=== PATIENT | female | born 1970 | race Caucasian/White ===

== ENCOUNTER 2019-04-12 23:31 | Emergency (ER) | payer MEDICARE ==
[~2019-04-12] VITALS: Ht 162.6 cm; Wt 74.8 kg
[2019-04-12] MEDS ORDERED: INDERAL LA120 M1 (23:40)
[2019-04-12] MEDS ORDERED: LEXAPRO 10 MG T10 M2 (23:41)
[2019-04-12] MEDS ORDERED: PRINIVIL10 MG PO (23:41)
[2019-04-12] MEDS ORDERED: PROTONIX40 M1 PO (23:41)
[2019-04-12] MEDS ORDERED: CLONAZEPAM 0.50.5 M1 PO (23:41)
[2019-04-12] MEDS ORDERED: NORCO 7.5-3251 EACH PO (23:42)
[2019-04-12] MEDS ORDERED: ADIPEX-P37.5 MG PO (23:42)
[2019-04-12] MEDS ORDERED: DESYREL150 MG PO (23:42)
[2019-04-13] MEDS ORDERED: HYDROCODON-ACE1 EAC7 PO (00:20)
[2019-04-13 00:33] VITALS: BP 159/96
== END 2019-04-13 00:33 | disposition home or self-care (01) ==
LOC: M.ERS 23:31
DX: S40.022A Contusion of left upper arm, initial encounter (principal); G47.30 Sleep apnea, unspecified; F32.9 Major depressive disorder, single episode, unspecified; G89.29 Other chronic pain; F17.210 Nicotine dependence, cigarettes, uncomplicated; Z88.6 Allergy status to analgesic agent; Z90.710 Acquired absence of both cervix and uterus; W10.8XXA Fall (on) (from) other stairs and steps, initial encounter; Y93.89 Activity, other specified; Y92.89 Other specified places as the place of occurrence of the external cause; Y99.8 Other external cause status

== ENCOUNTER 2020-10-01 16:30 | Emergency (ER) | payer MEDICARE, MEDICAID ==
[~2020-10-01] VITALS: Ht 162.6 cm; Wt 85.3 kg
[~2020-10-01 16:30] MED LIST: ADIPEX-P37.5 MG PO; CLONAZEPAM 0.50.5 M1 PO; DESYREL150 MG PO; HYDROCODON-ACE1 EAC7 PO; INDERAL LA120 M1; LEXAPRO 10 MG T10 M2; NORCO 7.5-3251 EACH PO; PRINIVIL10 MG PO; PROTONIX40 M1 PO
[2020-10-01] MEDS ORDERED: NEURONTIN 300M300 M2 PO (16:49)
[2020-10-01] MEDS ORDERED: TIZANIDINE HCL4 M1 PO (16:49)
[2020-10-01 17:22] LABS: URINE BILIRUBIN NEGATIVE (Negative); URINE BLOOD TRACE (Negative); URINE CLARITY CLEAR; URINE COLOR YELLOW; URINE GLUCOSE-RANDOM NEGATIVE (Negative); URINE KETONES NEGATIVE (Negative); URINE LEUKOCYTES-REFLEX NEGATIVE (Negative); URINE NITRITE-REFLEX NEGATIVE (Negative); URINE PROTEIN NEGATIVE (Negative); URINE SPECIFIC GRAVITY >= 1.030 (1.005-1.030); URINE UROBILINOGEN 0.2 E.U./dl (0.2-1.0)
[2020-10-01] MEDS ORDERED: LIDODERM1 EACH TOP (18:34)
[2020-10-01 18:44] VITALS: BP 159/80
== END 2020-10-01 18:44 | disposition home or self-care (01) ==
LOC: M.ERS 16:30
PROVIDERS: Emergency Medicine Emergency Medical Services
DX: M54.5 Low back pain (principal); M25.551 Pain in right hip; G89.29 Other chronic pain; Z88.6 Allergy status to analgesic agent; Z79.899 Other long term (current) drug therapy; Z90.710 Acquired absence of both cervix and uterus

== ENCOUNTER 2020-11-02 22:20 | Emergency (ER) | payer MEDICARE, MEDICAID ==
[~2020-11-02] VITALS: Ht 162.6 cm; Wt 81.7 kg
[~2020-11-02 22:20] MED LIST changes: +LIDODERM1 EACH TOP; +NEURONTIN 300M300 M2 PO; +TIZANIDINE HCL4 M1 PO
[2020-11-02] MEDS ORDERED: PERCOCET 7.5-31 EAC1 PO (22:31)
[2020-11-02] MEDS ORDERED: PENICILLIN V P500 MG PO (23:09)
[2020-11-02] MEDS ORDERED: HYDROCODON-ACE1 EAC7 PO (23:09)
[2020-11-02] MEDS ORDERED: IBUPROFEN 800800 MG PO (23:09)
[2020-11-02] MEDS ORDERED: PERIDEX15 ML PO (23:11)
[2020-11-02 23:56] VITALS: BP 153/80
== END 2020-11-02 23:57 | disposition home or self-care (01) ==
LOC: M.ERS 22:20
DX: A69.1 Other Vincent's infections (principal); Z88.6 Allergy status to analgesic agent; Z79.899 Other long term (current) drug therapy

== ENCOUNTER 2021-01-23 13:48 | Emergency (ER) | payer MEDICARE, MEDICAID ==
[~2021-01-23] VITALS: Ht 162.6 cm; Wt 90.7 kg
[~2021-01-23 13:48] MED LIST changes: +IBUPROFEN 800800 MG PO; +PENICILLIN V P500 MG PO; +PERCOCET 7.5-31 EAC1 PO; +PERIDEX15 ML PO
[2021-01-23] MEDS ORDERED: PROAIR HFA8.5 GM INH (14:44)
[2021-01-23 15:00] VITALS: BP 129/99
--- NOTE | 2021-01-23 15:00 | EKG ---
[place] [address] ELECTROCARDIOGRAM REPORT Name: AVERY QUINTANA Room: [facility]#: [id number] Admission: 01/23/21 Attend Phys: Discharge: Date of : 70 Date of Service: 01/23/21 1356 Report #: [id number] THIS REPORT FOR: //name// [facility] ED Test Date: 2021-01-23 Test Time: 13:56:24 Pat Name: AVERY WILLSONTea Department: Room: Gender: F Head Of Product: : 1970 Requested By: Ghanshyam Weir Order Number: [id number] MD: Fermin Kearns Measurements Intervals [place] Rate: 112 P: 54 MD: 121 QRS: -15 QRSD: 77 T: 53 QT: 356 QTc: 486 Interpretive Statements Sinus tachycardia Probable left atrial enlargement Inferior infarct, old No previous ECG available for comparison Electronically Signed On 01-23-2021 15:00:02 CDT by Fermin Kearns [email or web address] <ELECTRONICALLY SIGNED> By: Fermin Kearns MD, [facility] 01/23/21 1500 1356 1356 Fermin Kearns MD, FACC /EPI
== END 2021-01-23 15:01 | disposition home or self-care (01) ==
LOC: M.ERS 13:48
DX: U07.1 COVID-19 (principal); R30.0 Dysuria; R19.7 Diarrhea, unspecified; J44.9 Chronic obstructive pulmonary disease, unspecified; I10 Essential (primary) hypertension; F32.9 Major depressive disorder, single episode, unspecified; F17.210 Nicotine dependence, cigarettes, uncomplicated; Z98.890 Other specified postprocedural states; Z90.711 Acquired absence of uterus with remaining cervical stump; Z79.899 Other long term (current) drug therapy; Z79.2 Long term (current) use of antibiotics; Z88.8 Allergy status to other drugs, medicaments and biological substances